=== PATIENT | male | born 1970 | race Caucasian/White ===

== ENCOUNTER → 2021-04-22 | Outpatient (CLI) | payer OTHER ==
--- NOTE | 2021-04-23 05:03 | REP ---
INDICATION: EDEMA LEFT ORBIT. COMPARISON: None. TECHNIQUE: Water's and lateral views of the facial bones FINDINGS: Osseous structures appear intact and without obvious acute fracture. Sinuses are well aerated and without fluid level to suggest underlying injury or acute process. No significant foreign body. IMPRESSION: Unremarkable facial bone radiographs. <Electronically signed by Yifan Evans > 04/23/21 [id number]
== END ==
LOC: M WUC 12:04
PROVIDERS: ATTEND Surgery
DX: H05.222 Edema of left orbit (principal)

== ENCOUNTER 2024-07-21 06:15 | Emergency (ER) | payer MEDICAID, SELFPAY ==
[~2024-07-21] VITALS: Ht 185.4 cm; Wt 84.1 kg
[2024-07-21 07:05] LABS: BASO # 0.1 10^3/uL (0.0-0.2); BASO % 0.5 % (0.0-1.0); EOS # 0.3 10^3/uL (0.0-0.5); EOS % 3.1 % (0.0-3.0); HEMATOCRIT 33.8 % (42.0-52.0); HEMOGLOBIN 11.2 g/dl (13.5-17.5); LYMPH # 2.7 10^3/uL (1.5-5.0); LYMPH % 26.3 % (24.0-44.0); MEAN CORPUSCULAR HEMOGLOBIN 32.1 pg (27.0-33.0); MEAN CORPUSCULAR HGB CONC 33.1 g/dl (32.0-36.5); MEAN CORPUSCULAR VOLUME 96.8 fl (80.0-96.0); MONO # 0.9 10^3/uL (0.0-0.8); MONO % 8.8 % (2.0-8.0); NEUTROPHILS # 6.1 10^3/uL (1.5-8.5); NEUTROPHILS % 60.8 % (36.0-66.0); PLATELET COUNT, AUTOMATED 348 10^3/uL (150-450); RED BLOOD COUNT 3.49 10^6/uL (4.30-6.10); WHITE BLOOD COUNT 10.1 10^3/uL (4.0-10.0)
[2024-07-21 07:27] LABS: C REACTIVE PROTEIN QUANTITATIV 2.09 MG/DL (<1.0)
[2024-07-21 07:28] LABS: ERYTHROCYTE SEDIMENTATION RATE 63 mm/hr (0-20)
[2024-07-21 07:31] LABS: BLOOD UREA NITROGEN 37 MG/DL (9-23); CALCIUM LEVEL 8.9 MG/DL (8.5-10.1); CARBON DIOXIDE LEVEL 26 MMOL/L (20-31); CHLORIDE LEVEL 107 MMOL/L (98-107); CREATININE FOR GFR 0.95 MG/DL (0.70-1.30); GLOMERULAR FILTRATION RATE > 60.0 (>56); GLUCOSE, FASTING 88 MG/DL (60-100); POTASSIUM SERUM 4.8 MMOL/L (3.5-5.1); SODIUM LEVEL 139 MMOL/L (136-145)
[2024-07-21] MEDS: KETOROLAC 30 MG/ML 1ML VIAL IV ONE (08:00)
[2024-07-21] MEDS ORDERED: VANCOMYCIN HCL 1,750 MG in IV FLUID PLACE HOLDER 1 EA IV ONE (08:00)
[2024-07-21] MEDS: NS (Normal Saline) 0.9% 1,000 ML IV ONE (08:10)
[2024-07-21] MEDS: BOOSTRIX VACCINE (TETANUS/DIPHTH/ACEL. PERTUSSIS) 0.5ML SYR IM ONE (08:11)
[2024-07-21] MEDS ORDERED: VANCOMYCIN 1,750 MG/350 ML IV BAG *LOAD IV ONE (08:20)
[2024-07-21] MEDS: cefTRIAXone SOD 1 GM in DEXTROSE 5% (D5W) ADV/MINI-BAG 50 ML IV ONE (08:51)
[2024-07-21] MEDS: VANCOMYCIN 1,750 MG/350 ML IV BAG *LOAD IV ONE (09:26)
[2024-07-21] MEDS ORDERED: HOME MED LIST COMPLETE! XX SCH (10:50)
[2024-07-21 11:52] LABS: ALKALINE PHOSPHATASE 114 U/L (40-129); ALT/SGPT 51 U/L (7.0-40); AST/SGOT 40 U/L (<34); BILIRUBIN,DIRECT < 0.1 MG/DL (<0.4); BILIRUBIN,TOTAL 0.2 MG/DL (0.3-1.2); TOTAL PROTEIN 7.3 G/DL (5.7-8.2)
[2024-07-21 11:59] LABS: PROCALCITONIN 0.11 ng/ml
[2024-07-21] MEDS ORDERED: DALBAVANCIN 1,500 MG in D5W 250 ML IV ONE ×2 (12:10→13:10)
[2024-07-21 13:01] VITALS: BP 133/77; TEMP 97.9; O2SAT 99
[2024-07-21] MEDS ORDERED: DOXY-440 PO (13:23)
[2024-07-21] MEDS ORDERED: AMOX875T2 PO (13:25)
== END 2024-07-21 13:18 | disposition left against medical advice (07) ==
LOC: M ED 06:15
DX: L03.115 Cellulitis of right lower limb (principal); J02.0 Streptococcal pharyngitis; Z53.9 Procedure and treatment not carried out, unspecified reason; I10 Essential (primary) hypertension; Z85.6 Personal history of leukemia
CPT/HCPCS: 73590; 80048; 80076; 83605; 84145; 85025; 85652; 86140; 87040; 90471; 90715; 93971; 96365; 96375; 99284; J0696; J1885; J3372